=== PATIENT | female | born 1960 | race Caucasian/White ===

== ENCOUNTER 2022-04-14 11:32 | Outpatient (CLI) | payer OTHER, SELFPAY ==
[2022-04-14 14:26] LABS: Chloride* 106 mmol/L (96-114); Potassium* 4.8 mmol/L (3.6-5.1); Sodium* 138 mmol/L (135-149)
[2022-04-14 14:29] LABS: Carbon Dioxide* 26 mmol/L (20-32); Creatinine* 0.6 mg/dL (0.5-1.5); Estimated Glomerular Filt Rate 103 ml/min
[2022-04-14 14:30] LABS: Blood Urea Nitrogen* 14 mg/dL (7-30); Calcium* 9.6 mg/dL (8.4-10.6); Glucose* 77 mg/dL (60-115)
== END 2022-04-14 11:33 | disposition home or self-care (01) ==
LOC: NFLDREF 11:32
PROVIDERS: PCP Family Medicine; Visit Provider Family Medicine
DX: Z01.818 Encounter for other preprocedural examination (principal)
CPT/HCPCS: 80048

== ENCOUNTER 2022-05-02 08:28 | Outpatient (CLI) | payer OTHER, SELFPAY ==
--- NOTE | 2022-05-02 09:35 | W.ANESCHARGE ---
Anesthesia Charges Start Date/Time Anesthesia Start Date: 05/02/22 Anesthesia Start Time: 09:00 Stop Date/Time Anesthesia Stop Date: 05/02/22 Anesthesia Stop Time: 09:28 Summary Emergency: No
--- NOTE | 2022-05-02 10:12 | W.ANESCHARGE ---
Anesthesia Charges Start Date/Time Anesthesia Start Date: 05/02/22 Anesthesia Start Time: 09:00 Stop Date/Time Anesthesia Stop Date: 05/02/22 Anesthesia Stop Time: 09:28 Summary Emergency: No
== END 2022-05-02 08:29 | disposition home or self-care (01) ==
LOC: OP CLINIC 08:29
PROVIDERS: PCP Family Medicine; Visit Provider Internal Medicine
DX: Z12.11 Encounter for screening for malignant neoplasm of colon (principal); K62.1 Rectal polyp
CPT/HCPCS: 00811; 45380; 88305; J2704

== ENCOUNTER 2022-09-25 13:26 | Outpatient (CLI) | payer OTHER, SELFPAY ==
--- NOTE | 2022-09-25 13:40 | CRLHL7_ITS ---
For Patients: As a result of the Century Cures Act, medical imaging exams and procedure reports are released immediately into your electronic medical record. You may view this report before your referring provider. If you have questions, please contact your health care provider. BILATERAL SCREENING MAMMOGRAM WITH COMPUTER-AIDED DETECTION TECHNIQUE: CC, MLO and implant-displaced views were obtained. These mammographic images have been obtained using full-field digital technique. These mammographic images were interpreted with the benefit of computer-aided detection. COMPARISON FILM: 07/11/21, 04/20/20, 08/13/18. FINDINGS: The breasts are almost entirely fatty. IMPRESSION: There is no radiographic evidence for malignancy. ASSESSMENT: BI-RADS Category 2: Benign RECOMMENDATION: Routine screening mammogram in 1 year. A lay language report of this examination will be provided to the patient. DONNY MAURER M.D. Diagnostic Radiologist [email or web address] Transcribed: 3:[address]/Dictated by: Donny Maurer MD @ 09/26/2022 11:52:00 AM (Electronically Signed)
== END 2022-09-25 13:27 | disposition home or self-care (01) ==
LOC: MAMMO 13:27
PROVIDERS: PCP Family Medicine; Visit Provider Obstetrics & Gynecology
DX: Z12.31 Encounter for screening mammogram for malignant neoplasm of breast (principal)
CPT/HCPCS: 77067

== ENCOUNTER 2023-06-29 14:46 | Outpatient (CLI) | payer OTHER, SELFPAY | END 2023-06-29 14:47 | disposition home or self-care (01) | LOC: NFLDREF 14:47 | PROVIDERS: PCP Family Medicine; Visit Provider Family Medicine | DX: I10 Essential (primary) hypertension (principal) | CPT/HCPCS: 80048 ==

== ENCOUNTER 2023-10-23 12:25 | Outpatient (CLI) | payer OTHER, SELFPAY | END 2023-10-23 12:26 | disposition home or self-care (01) | LOC: NFLDREF 10-24 07:43 | PROVIDERS: PCP Family Medicine; Referring Provider Family Medicine; Visit Provider Physician Assistant | DX: Z01.419 Encounter for gynecological examination (general) (routine) without abnormal findings (principal); I10 Essential (primary) hypertension; F17.210 Nicotine dependence, cigarettes, uncomplicated; Z13.6 Encounter for screening for cardiovascular disorders | CPT/HCPCS: 80061 ==

== ENCOUNTER 2023-12-31 14:25 | Outpatient (CLI) | payer OTHER, SELFPAY ==
--- NOTE | 2023-12-31 14:40 | CRLHL7_ITS ---
For Patients: As a result of the Century Cures Act, medical imaging exams and procedure reports are released immediately into your electronic medical record. You may view this report before your referring provider. If you have questions, please contact your health care provider. BILATERAL SCREENING MAMMOGRAM WITH COMPUTER-AIDED DETECTION AND TOMOSYNTHESIS TECHNIQUE: CC, MLO and implant-displaced views were obtained. These mammographic images have been obtained using full-field digital technique. These mammographic images were interpreted with the benefit of computer-aided detection. Breast tomosynthesis was used in this interpretation. COMPARISON FILM: 09/25/22, 07/11/21, 04/20/20. FINDINGS: There are scattered areas of fibroglandular density. IMPRESSION: There is no radiographic evidence for malignancy. ASSESSMENT: BI-RADS Category 2: Benign RECOMMENDATION: Routine screening mammogram in 1 year. A lay language report of this examination will be provided to the patient. DONNY MAURER M.D. Diagnostic Radiologist [email or web address] Transcribed: 3:[address]/Dictated by: Donny Maurer MD @ 01/01/2024 11:15:00 AM (Electronically Signed)
== END 2023-12-31 14:26 | disposition home or self-care (01) ==
LOC: MAMMO 14:26
PROVIDERS: PCP Family Medicine; Visit Provider Physician Assistant
DX: Z12.31 Encounter for screening mammogram for malignant neoplasm of breast (principal)
CPT/HCPCS: 77063; 77067

== ENCOUNTER 2024-10-27 16:17 | Outpatient (CLI) | payer OTHER, SELFPAY ==
[2024-10-29 07:38] LABS: HPV Source Cervix; HPV, High Risk by TMA Not Detected
== END 2024-10-27 16:18 | disposition home or self-care (01) ==
PROVIDERS: PCP Family Medicine; Visit Provider Physician Assistant
DX: Z12.4 Encounter for screening for malignant neoplasm of cervix (principal); Z11.51 Encounter for screening for human papillomavirus (HPV)
CPT/HCPCS: 87624; 87625; 88141; 88142

== ENCOUNTER 2025-01-29 13:07 | Outpatient (CLI) | payer OTHER, SELFPAY ==
--- NOTE | 2025-01-29 13:20 | CRLHL7_ITS ---
For Patients: As a result of the Century Cures Act, medical imaging exams and procedure reports are released immediately into your electronic medical record. You may view this report before your referring provider. If you have questions, please contact your health care provider. INDICATION: BILATERAL SCREENING MAMMOGRAM W/IMPLANTS, ASYMPTOMATIC 64 Y/O FEMALE COMPARISON: 12/31/2023, 09/25/2022, 07/11/2021 TECHNIQUE: Digital mammogram in CC and MLO projections including computer-aided detection (CAD) and tomosynthesis. BREAST COMPOSITION: The breasts are almost entirely fatty. FINDINGS: No suspicious findings. ASSESSMENT: BI-RADS 2 Benign RECOMMENDATION: Annual screening mammogram. A lay language report of this examination will be provided to the patient. Dictated by: Donny Coburn MD @ 01/30/2025 09:01:33 (Electronically Signed)
== END 2025-01-29 13:08 | disposition home or self-care (01) ==
LOC: MAMMO 13:07
PROVIDERS: PCP Family Medicine; Visit Provider Physician Assistant
DX: Z12.31 Encounter for screening mammogram for malignant neoplasm of breast (principal)
CPT/HCPCS: 77063; 77067